=== PATIENT | female | born 1960 | race Caucasian/White ===

== ENCOUNTER 2022-07-25 10:16 | Outpatient (CLI) | payer OTHER, SELFPAY ==
--- NOTE | 2022-07-25 10:45 | CRLHL7_ITS ---
For Patients: As a result of the Century Cures Act, medical imaging exams and procedure reports are released immediately into your electronic medical record. You may view this report before your referring provider. If you have questions, please contact your health care provider. RIGHT SCREENING MAMMOGRAM WITH COMPUTER-AIDED DETECTION TECHNIQUE: CC and MLO views were obtained. These mammographic images have been obtained using full-field digital technique. These mammographic images were interpreted with the benefit of computer-aided detection. COMPARISON FILM: 05/27/21. FINDINGS: There are scattered areas of fibroglandular density IMPRESSION: There is no radiographic evidence for malignancy. ASSESSMENT: BI-RADS Category 1: Negative RECOMMENDATION: Routine screening mammogram in 1 year. A lay language report of this examination will be provided to the patient. Mikel Villegas M.D. Diagnostic Radiologist [email or web address] ABEL/Dictated by: Mikel Villegas MD @ 07/25/2022 11:20:00 AM (Electronically Signed)
== END 2022-07-25 10:17 | disposition home or self-care (01) ==
LOC: MAMMO 10:16
PROVIDERS: PCP Family Medicine; Visit Provider Nurse Practitioner Family
DX: Z12.31 Encounter for screening mammogram for malignant neoplasm of breast (principal)
CPT/HCPCS: 77067

== ENCOUNTER 2022-09-27 10:34 | Outpatient (CLI) | payer OTHER, SELFPAY | END 2022-09-27 10:35 | disposition home or self-care (01) | LOC: NFLDREF 10:36 | PROVIDERS: PCP Family Medicine; Visit Provider Family Medicine | DX: Z01.818 Encounter for other preprocedural examination (principal) | CPT/HCPCS: 80048 ==

== ENCOUNTER 2022-10-05 12:43 | Outpatient (CLI) | payer OTHER, SELFPAY ==
--- NOTE | 2022-10-05 13:00 | CRLHL7_ITS ---
For Patients: As a result of the Century Cures Act, medical imaging exams and procedure reports are released immediately into your electronic medical record. You may view this report before your referring provider. If you have questions, please contact your health care provider. DXA BONE MINERAL DENSITY STUDY Current height (in): 63.0. Weight (lb): 189.0. Menopause age: 48. Ethnicity: White. Reason for exam: Post-menopausal, aromatase inhibitor for breast CA. 1. Have you had a previous hip or vertebral fracture? No. 2. Have you had any fractures during your adult life which did not result from significant trauma (e.g., auto accident)? No. 3. Did either of your parents have a hip fracture? No. 4. Do you smoke? No. 5. Have you ever taken Glucocorticoids? No. 6. Do you have rheumatoid arthritis? No. 7. Do you have secondary osteoporosis? No. 8. Do you drink 3 or more alcoholic drinks per day? No. 9. Are you being treated for osteoporosis? No. 10. Have you ever taken any of the following medications: Actonel, Evista, Fosamax, Miacalcin, Reclast, Boniva, Forteo, HRT (i.e. estrogen/hormone therapy), Protelos, Prolia, Vitamin D, Calcium, other ??? please specify. ANSWER: Yes, calcium, vitamin D. 11. Do you have any of the following medical conditions: Anorexia or bulimia, asthma or emphysema, end stage renal disease, hyperparathyroidism, any seizure disorders, cancer, inflammatory bowel diseases, hysterectomy, other ??? please specify. ANSWER: Yes, cancer, hysterectomy. 12. What was your maximum height (inches)? 63. 13. Do you perform weight bearing exercise regularly? No. 14. Do you regularly consume dairy products? No. 15. Do you drink caffeinated beverages? Yes. 16. At what age did your period start? 13. 17. Are you premenopausal? No. 18. How many full term pregnancies have you had? 2. 19. Have you ever missed your period for more than 6 months in a row (not including or menopause)? No. TECHNIQUE: Bone mineral density study was performed using the [employer]. FINDINGS: The results of the study expressed as bone mineral density (BMD) are as follows: Lumbar spine L1 to L4: BMD: 0.923 g/cm2. T-score: -1.1. Z-score: 0.6. Neck Left: BMD: 0.817 g/cm2. T-score: -0.3. Z-score: 1.2. Right: BMD: 0.808 g/cm2. T-score: -0.4. Z-score: 1.1. Total Left: BMD: 0.821 g/cm2. T-score: -1.0. Z-score: 0.2. Right: BMD: 0.859 g/cm2. T-score: -0.7. Z-score: 0.5. IMPRESSION: Osteopenia. FRAX 10-year Fracture Risk Major Osteoporotic Fracture: 6.6 percent Hip Fracture: 0.3 percent Reported Risk Factors: [place] () Neck BMD = 0.808, BMI = 33.5 Mikel Villegas M.D. Diagnostic Radiologist [email or web address] Transcribed: 3:59 p.m. DW/Dictated by: Mkiel Villegas MD @ 10/05/2022 3:04:00 PM (Electronically Signed)
== END 2022-10-05 12:44 | disposition home or self-care (01) ==
LOC: RAD 12:45
PROVIDERS: PCP Family Medicine; Visit Provider Clinical Nurse Specialist
DX: Z78.0 Asymptomatic menopausal state (principal); M85.89 Other specified disorders of bone density and structure, multiple sites; C50.912 Malignant neoplasm of unspecified site of left female breast; Z79.811 Long term (current) use of aromatase inhibitors
CPT/HCPCS: 77080

== ENCOUNTER 2022-10-10 10:00 | Outpatient (CLI) | payer OTHER, SELFPAY | END 2022-10-10 10:01 | disposition home or self-care (01) | LOC: NFLDREF 16:19 | PROVIDERS: PCP Family Medicine; Referring Provider Family Medicine; Visit Provider Family Medicine | DX: E87.6 Hypokalemia (principal) | CPT/HCPCS: 84132 ==

== ENCOUNTER 2022-12-28 12:46 | Outpatient (RCR) | payer OTHER, SELFPAY ==
--- NOTE | 2022-08-11 11:13 | PC.NURSE ---
Pt called today to cancel her follow-up appointment in August. RN Noted that pt has no scheduled appointments at this time. Henny went on to say that she is not taking her AI because insurance company cancelled it. Pt states that she would like to be on the medication because she recently learned the benefits of taking it for several years. RN will communicate this confusion with TAYLOR Castorenasleeve turner and ask that she follow-up with Henny.
--- NOTE | 2022-08-22 14:08 | ONC.NURNOTE ---
Addendum entered by Kell Jarvis 09/05/22 15:49: Call to patient to see how she is tolerating the Anastrozole. Patient states she has still not been able to pick it up from her pharmacy because the pharmacy says it is not approved by her insurance. After calls to both the insurance company and the pharmacy, the issue has been resolved and the pharmacy is processing the order. Henny informed of same. 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 BCN will follow up in a few weeks to see how she is tolerating. Henny encouraged to call with questions or concerns. Original Note: Call to patient to let her know that we received notification of approval from her insurance for Anastrozole. I encouraged patient to pickling drum operator the medicine and start at her earliest convenience. I offered to schedule a one month follow up appointment but patient states she will call back at a later time to schedule. I told her that if I hadn't heard from her in a few weeks, I would reach out to see how she is tolerating the medication.
--- NOTE | 2022-09-20 08:55 | ONC.NURNOTE ---
Addendum entered by Kell Jarvis 09/25/22 13:54: Call to patient to see how she is tolerating Anastrozole. Patient states she is doing well. She reports intermittent night sweats and bone pain in her legs but does not feel that any intervention is needed at this time. I talked to patient about the need to get a baseline DEXA scan if she plans to continue taking the endocrine therapy. Also discussed the need for taking a Calcium and Vit D supplement while she is on endocrine therapy. Patient was connected to radiology to schedule DEXA and follow up with Dr. Taylor was also scheduled. Patient encouraged to call with questions or concerns. Original Note: Called pt to check in on how Anastrazole is going; LMOM.
== END 2023-01-20 23:59 | disposition home or self-care (01) ==
LOC: CCIC 12:46
PROVIDERS: PCP Family Medicine; Visit Provider Internal Medicine Hematology & Oncology
DX: C50.912 Malignant neoplasm of unspecified site of left female breast (principal); Z17.0 Estrogen receptor positive status [ER+]; Z79.811 Long term (current) use of aromatase inhibitors; M85.80 Other specified disorders of bone density and structure, unspecified site; R51.9 Headache, unspecified; R60.0 Localized edema
CPT/HCPCS: 99212; 99214

== ENCOUNTER 2023-01-04 21:43 | Emergency (ER) | payer OTHER, SELFPAY ==
[2023-01-04 21:48] VITALS: BP 147/96; PULSE 101; RESP 16; TEMP 37.4; O2SAT 99; BMI 33.7
--- NOTE | 2023-01-04 22:37 | ED.GENADULT ---
HPI - General Adult General Time Seen by Provider: 22:37 Date Seen: 01/04/23 Chief complaint: Insect Bite Stated complaint: stung by a bee Time Seen by Provider: 01/04/23 22:37 Source: patient and RN notes reviewed Mode of arrival: ambulatory Limitations: no limitations History of Present Illness HPI narrative: Patient was stung by a a be taking the garbage out tonight shortly after 8:00 p.m.. Initially her arm was swollen. It was her right arm. Is gone down quite a bit. She has not applied ice, did not take anything. She had radiation about a year ago and was told that she would be susceptible to skin infections from bug bites. She has no history of allergy to Hymenoptera. The swelling has completely resolved. She did wash her arm off right away when this happened. It is on the right forearm that this happened. She did not have any breathing issues, no oral pharyngeal swelling, no rash. Related Data Home Medications Medication Instructions Recorded Confirmed omeprazole 20 mg capsule,delayed 20 mg PO QDAY 03/14/22 01/04/23 release sennosides 8.6 mg tablet (senna) 8.6 mg PO QDAY PRN 09/27/22 01/04/23 ibuprofen 400 mg tablet 400 mg PO Q8H PRN 12/28/22 01/04/23 Previous Rx's Medication Instructions Recorded anastrozole 1 mg tablet (Arimidex) 1 mg PO QDAY #90 tabs 09/26/22 lisinopril 20 1 tab PO QDAY #90 tabs 09/27/22 mg-hydrochlorothiazide 25 mg tablet potassium chloride 20 mEq 20 meq PO BID #60 tabs 10/08/22 tablet,extended release Allergies Allergy/AdvReac Type Severity Reaction Status Date / Time [place] And Derivatives Allergy Mild Itchiness Verified 01/04/23 21:54 Review of Systems Narrative: As per HPI PFSH PFSH Medical History Urinary tract infection ?N39.0 - Urinary tract infection, site not specified (ICD-10) Infiltrating ductal carcinoma of left breast (2021) ?C50.912 - Malignant neoplasm of unspecified site of left female breast (ICD-10) Gastroesophageal reflux disease ?K21.9 - Gastro-esophageal reflux disease without esophagitis (ICD-10) Hypertension ?I10 - Essential (primary) hypertension (ICD-10) Surgical History History of mastectomy ?Z90.10 - Acquired absence of unspecified breast and nipple (ICD-10) Status post tubal ligation ?Z98.51 - Tubal ligation status (ICD-10) Status post carpal tunnel release ?Z98.890 - Other specified postprocedural states (ICD-10) History of hysterectomy ?Z90.710 - Acquired absence of both cervix and uterus (ICD-10) Family History Mother Myocardial infarction High blood pressure Father Myocardial infarction High blood pressure Brother Stroke High blood pressure Social History Smoking Status: Never smoker Do you use any of these nicotine containing products: None Second hand tobacco smoke exposure: No How often do you have a drink containing alcohol: monthly or less AUDIT-C Alcohol total score: 1 Non-prescribed substance use: denies use service: No Exam Const: Vital Signs, click to edit/add: Vital Signs - 24 hr 01/04/23 21:48 Temperature 99.3 F Pulse Rate [Pulse Oximeter] 101 H Respiratory Rate 16 Blood Pressure [Ri ght Upper Arm] 147/96 H Pulse Oximetry 99 Oxygen Delivery Me thod Room Air Documenting provider has reviewed patient's vital signs: yes Common normals: no apparent distress, average body habitus, oriented x3, no limitations, healthy appearing, alert and well nourished General appearance: cooperative, comfortable, well kempt and well developed HENMT: Common normals: normocephalic, head/scalp atraumatic, hearing grossly normal bilaterally and external nose normal Head and scalp: normocephalic and atraumatic Face and sinus: normal facial exam Nose: external nose normal Mouth: oral and palatal mucosa normal and lip normal Eye: Common normals: PERRL, EOMs intact bilaterally, conjunctivae normal and no scleral icterus Conjunctiva: conjunctiva(e) normal Pupil: PERRL Resp: Common normals: normal respiratory effort, no retractions, no use of accessory muscles and clear to auscultation bilaterally Effort & inspection: able to speak in complete sentences Auscultation: clear to auscultation bilaterally Cardio: Common normals: regular rate, regular rhythm, S1 normal heart sound, S2 normal heart sound, no gallops, no clicks and no murmurs Rate: regular rate Rhythm: regular rhythm Heart sounds: S1 normal and S2 normal Extremity: Other: Right forearm is visualized, has a pinpoint area on the medial distal forearm. No retained stinger. There is absolutely no surrounding erythema or raised area. Neuro: Common normals: oriented x3 Sensorium/orientation: alert Psych: Appearance: well kempt Course Course Hospital Course: Will give patient a dose of 10 mg oral Zyrtec to help prevent any reactivity. Discussed that there is no evidence of any infection from this bug bite in would be extremely uncommon to have an immediate cellulitis developed after a bug bite. That typically happens later. Did review with her difference between localized bug bite reaction and anaphylaxis. She may continue to see some swelling and localized irritation of the site, recommend daily Claritin or Zyrtec and p.r.n. topical and or oral Benadryl. We discussed using ice to her arm as much as she is able to next 24-48 hours until the reaction is gone. We did discussed hypersensitivity with subsequent bug bites, we have no way of knowing if that will ever happen but she should be aware. Vital Signs Vital signs: Initial Vital Signs Temperature 99.3 F 01/04/23 21:48 Temperature Source Temporal Artery Scan 01/04/23 21:48 Pulse Rate 101 H 01/04/23 21:48 Respiratory Rate 16 01/04/23 21:48 Blood Pressure 147/96 H 01/04/23 21:48 Blood Pressure Mean 113 H 01/04/23 21:48 Blood Pressure Position Sitting 01/04/23 21:48 Pulse Oximetry 99 01/04/23 21:48 Oxygen Delivery Method Room Air 01/04/23 21:48 Vital Signs Temperature 99.3 F 01/04/23 21:48 Pulse Rate 101 H 01/04/23 21:48 Respiratory Rate 16 01/04/23 21:48 Blood Pressure 147/96 H 01/04/23 21:48 Pulse Oximetry 99 01/04/23 21:48 Oxygen Delivery Method Room Air 01/04/23 21:48 Temperature 99.3 F 01/04/23 21:48 Pulse Rate 101 H 01/04/23 21:48 Respiratory Rate 16 01/04/23 21:48 Blood Pressure 147/96 H 01/04/23 21:48 Pulse Oximetry 99 01/04/23 21:48 Oxygen Delivery Method Room Air 01/04/23 21:48 Discharge Plan Discharge Clinical Impression: Bee sting Patient Disposition: Home, Self-Care Condition: Stable Instructions: Insect Bite or Sting (ED) Additional Instructions: Can continue with daily clear in her Zyrtec as long as there is localized tissue reaction. Topical Benadryl and or oral Benadryl as needed for symptom control. Do recommend ice to this area on your forearm the next 24-48 hours, this really can help diminish reaction. If you develop increasing swelling and redness of the site associated with fever and discomfort, please seek re-evaluation for possible development of cellulitis from the bug bite. Infection from a bug bite typically does not happen immediately and usually is seeing days after the incident. Activity Level: Activity as Tolerated Prescriptions: No Action omeprazole 20 mg capsule,delayed release(DR/EC) 20 mg PO QDAY ibuprofen 400 mg tablet 400 mg PO Q8H PRN lisinopril-hydrochlorothiazide 20-25 mg tablet 1 tab PO QDAY Qty: 90 1RF anastrozole [Arimidex] 1 mg tablet 1 mg PO QDAY Qty: 90 3RF Rx Instructions: Take 1 tablet daily. sennosides [senna] 8.6 mg tablet 8.6 mg PO QDAY PRN Patient Comments: TAKE 1 TABLET BY MOUTH DAILY potassium chloride 20 mEq tablet extended release 20 meq PO BID Qty: 60 2RF Rx Instructions: Okay to decrease to daily after 2-3 days. Follow Up/Referrals: Jerry Mcwilliams MD [Primary Care Provider] - Stand Alone Forms: [employer] Info Instructions
[2023-01-04] MEDS: CETIRIZINE HCL 10 MG TABLET PO (22:43)
== END 2023-01-04 23:00 | disposition home or self-care (01) ==
PROVIDERS: Emergency Provider Family Medicine; PCP Family Medicine
DX: T63.441A Toxic effect of venom of bees, accidental (unintentional), initial encounter (principal); M79.89 Other specified soft tissue disorders
CPT/HCPCS: 99283; A9270

== ENCOUNTER 2023-01-25 08:50 | Outpatient (CLI) | payer OTHER, SELFPAY ==
--- NOTE | 2023-01-25 09:00 | CRLHL7_ITS ---
For Patients: As a result of the Century Cures Act, medical imaging exams and procedure reports are released immediately into your electronic medical record. You may view this report before your referring provider. If you have questions, please contact your health care provider. Indication: Headaches, history of breast cancer. Technique: Noncontrast sagittal T1, axial FLAIR, T2 turbo spine echo, and diffusion weighted images. Supplemental post contrast T1 weighted axial and coronal sequences are provided after administration of 15 mL gadolinium-based IV contrast. Comparison: No prior studies available for comparison at this institution. Findings: No evidence of acute ischemia. Punctate focus of susceptibility artifact in the left temporo-occipital region consistent with prior microhemorrhage. Scattered as well as confluent foci of T2 hyperintensity in the supratentorial white white-matter. No focus of abnormal brain parenchymal or leptomeningeal contrast enhancement. The ventricles are normal in size. The larger intracranial arteries are patent. No suspicious calvarial lesion. Scattered paranasal sinus mucosal thickening and small right mastoid effusion. Impression: No acute intracranial abnormality. No evidence of intracranial metastasis. Scattered as well as confluent T2 periventricular and subcortical white matter hyperintensities, nonspecific but commonly seen as sequela of small-vessel ischemic disease or in the setting of chronic migraine headaches. Punctate focus of susceptibility in the left temporo-occipital region consistent with prior microhemorrhage. Dictated by Titus Pantoja MD @ 01/25/2023 4:46:45 PM (Electronically Signed)
--- NOTE | 2023-01-26 16:11 | ONC.NURNOTE ---
Called pt and reviewed Brain MRI results with her in relation to Dr. Ochoa's note. Results show No evidence of intracranial metastasis. Per Dr. Ochoa's note, if no sign of metastatic disease, recommend pt f/u with PCP for [facility] management. Reviewed with pt that service writer advisor unable to interpret any other results of MRI than No evidence of intracranial metastasis. and encouraged f/u with PCP for further discussion, as she has questions about her stroke risk/hx of stroke in her family.
== END 2023-01-25 08:51 | disposition home or self-care (01) ==
LOC: MRI 08:51
PROVIDERS: PCP Family Medicine; Visit Provider Physician Assistant
DX: R51.9 Headache, unspecified (principal); C50.912 Malignant neoplasm of unspecified site of left female breast
CPT/HCPCS: 70553; A9575

== ENCOUNTER 2023-07-17 15:24 | Outpatient (CLI) | payer OTHER, SELFPAY ==
--- OUTSIDE RECORDS SUMMARY | 2023-07-17 15:27 | XMS_ITS | Clinical Summary ---
Author Name Unknown Organization [facility] Address [address] [place] [address] Care Team Providers Care Editorial Director Name Role Phone Unavailable Primary Care Provider Unavailabl e Source Comments Patient records contain information from all sites at [facility]. For routine questions regarding patient records, call [phone] during business hours, M-F 8:00 AM - 5:00 PM Central Time. Record requests for emergency care only can be directed to [phone] at any time.[facility] Allergies Active Allergy Reactions Criticality Noted Date Comments [place] And Derivatives Hives (Reselect Reaction) 08/03/2021 Oxycodone Other (see comments) High 08/17/2021 Hypotension Medications Medication Sig Dispensed Refills Start Date End Date Status ibuprofen (ADVIL,MOTRIN) 200 mg tablet Every 6 Hours as needed 0 Active lisinopril-hydroCHLORO thiazide (PRINZIDE,ZESTORETIC) 20-25 mg per tablet Take 1 tablet by mouth daily. 0 08/30/2021 Active omeprazole magnesium 10 mg susp,delayed release for recon 1 tablet. 0 Active acetaminophen (TYLENOL) 325 mg tablet Take 325 mg by mouth every 4 (four) hours as needed for pain. 0 Active Active Problems Problem Noted Date Diagnosed Date Malignant Neoplasm Of Breast Upper Outer Quadrant Female Left 09/08/2021 Cancer Staging:Pathologic stage from 07/28/2021:Stage IA(pT2, pN1mi, cM0, G1, ER+, NM+, HER2-, Oncotype DX score: 19) - Signed by Asim Cerda M.D. on 09/09/2021 Social History Tobacco Use Types Packs/Day Years Used Date Smoking Tobacco: Never Smokeless Tobacco: Never Alcohol Use Standard Drinks/Week Comments Yes 0 (1 standard drink = 0.6 oz pur e alcohol) 5-10 beers per year Nutrition Answer Date Recorded Nutrition: EVOO Fat Source Unknown 09/01 Nutrition: Servings of Fruits/Vegetables per Day Not on file 09/01/2021 Dental Answer Date Recorded Dental: Regular Dentist Unknown 09/02/19 Sex and Gender Information Value Date Recorded Sex Assigned at Not on file Gender Identity Not on file Sexual Orientation Not on file Last Filed Vital Signs Vital Sign Reading Time Taken Comments Blood Pressure 122/57 09/09/2021 8:51 AM CDT Pulse 58 09/09/2021 8:51 AM CDT Temperature 36.2 ??C (97.1 ??F) 09/09/2021 8:51 AM CD T Respiratory Rate 24 02/16/2013 5:55 PM CDT Oxygen Saturation - - Inhaled Oxygen Concentration - - Weight 85 kg (187 lb 6.3 oz) 09/09/2021 8:51 AM CDT Height 162.5 cm (5' 3.98) 02/16/2013 2:33 PM CD T Body Mass Index 32.19 02/16/2013 2:33 PM CDT Plan of Treatment Health Maintenance Due Date Last Done Comments CT Colonography 1958 Cologuard 1960 Colonoscopy 1960 Colorectal Cancer Screening 1958 FIT 1958 HIV Screening 1960 Hepatitis C Screening 1960 Lipid (Cholesterol) Screening 1960 Creatinine Level (Kidney Function Test) 02/16/2014 02/16/2013 Sodium Level 02/16/2014 02/16/2013 Fasting Glucose for Diabetes Screening 02/17/2016 02/16/2013 Mammogram 06/27/2022 06/27/2021, 05/30/2021, 05/27/2021 COVID-19 Vaccine (3 - 2022-2 4 season) 2023 09/15/2020, 08/18/2020 Influenza Vaccine (#1) 2023 Potassium Level 05/16/2023 05/16/2022, 02/16/2013 Depression Screening (Annual PHQ-2) 06/18/2023 DTaP,Tdap,and Td Vaccines (2 - Td or Tdap) 06/24/2031 06/24/2021 Zoster Vaccines Completed 05/22/2022, 03/14/2022 Pneumococcal vaccine (0-64 years) Aged Out No longer eligible b ased on patient's age to complete this topic
--- OUTSIDE RECORDS SUMMARY | 2023-07-17 15:27 | XMS_ITS | Referral Summary ---
Author Name Unknown Organization [facility] Address [address] [place] [address] Care Team Providers Care Treating Plant Operator Name Role Phone Unavailable Primary Care Provider Unavailabl e Source Comments Patient records contain information from all sites at [facility]. For routine questions regarding patient records, call [phone] during business hours, M-F 8:00 AM - 5:00 PM Central Time. Record requests for emergency care only can be directed to [phone] at any time.[facility] Allergies Active Allergy Reactions Criticality Noted Date Comments [place] And Derivatives Hives (Reselect Reaction) 08/03/2021 Oxycodone [...] from 07/28/2021:Stage IA(pT2, pN1mi, cM0, G1, ER+, MO+, HER2-, Oncotype DX score: 19) - Signed [...] 02/16/2013 2:33 PM CDT Plan of Treatment Not on file
--- OUTSIDE RECORDS SUMMARY | 2023-07-17 15:27 | XMS_ITS ---
Author Name Unknown Organization [facility] Address [address] [place] [address] Care Team Providers Care Environmental Aide Name Role Phone Unavailable Unavailable Unavailable Surgery Details Not on file Complications Check Surgery Details section. Procedure Estimated Blood Loss Check Surgery Details section. Procedure Findings Check Surgery Details section. Procedure Specimens Taken Check Surgery Details section.
--- OUTSIDE RECORDS SUMMARY | 2023-07-17 15:27 | XMS_ITS | Clinical Summary ---
Author Name Unknown Organization [facility] Address [place], [place] [address] Care Team Providers Care Photocomposition Keyboard Operator Name Role Phone Pcp, No Primary Care Provider Unavailabl e Social History Tobacco Use Types Packs/Day Years Used Date Smoking Tobacco: Never Assessed Sex and Gender Information Value Date Recorded Sex Assigned at Not on file Gender Identity Not on file Sexual Orientation Not on file Obstetrics History Last Filed Vital Signs Vital Sign Reading Time Taken Comments Blood Pressure 116/76 10/24/2000 12:00 AM CDT Pulse 72 10/24/2000 12:00 AM CDT Temperature - - Respiratory Rate - - Oxygen Saturation - - Inhaled Oxygen Concentration - - Weight - - Height - - Body Mass Index - - Plan of Treatment Health Maintenance Due Date Last Done Comments Tdap 1969 Depression screening for age 12+ 1970 HIV for age 15-65 1973 BMI (ht and wt on same day) for age 18+ 1976 Hepatitis C screening for ag e 18-79 1976 Tetanus booster 1978 Pap test for age 21-65 1979 Colonoscopy through age 75 2003 Lipids for age 45-75 2003 Mammogram for age 45-75 2003 Zoster (shingles) series for age 50+ (1 of 2) 2008 COVID-19 vaccine series (2022-24 season) 2023 09/15/2020, 08/18/2020 Influenza for age 50-64 02/16/2023 Pneumococcal series for age 6-64 Aged Out No longer eligible b ased on patient's age to complete this topic Care Teams Photocomposition Keyboard Operator Relationship Specialty Start Date End Date Pcp, No . PCP - General 12/08/08
== END 2023-07-17 15:25 | disposition home or self-care (01) ==
PROVIDERS: PCP Family Medicine; Visit Provider Family Medicine
DX: I10 Essential (primary) hypertension (principal); Z13.220 Encounter for screening for lipoid disorders
CPT/HCPCS: 80053; 80061

== ENCOUNTER 2025-06-03 13:35 | Emergency (ER) | payer OTHER, SELFPAY ==
--- OUTSIDE RECORDS SUMMARY | 2025-06-03 13:40 | XMS_ITS | CCD ---
Author Name [facility] Address [address] [address] Organization [facility] Address [address] [address] Care Team Providers Care Strategic Manager Name Role Phone Catrachito Martinez MD Unavailable Unavailable Allergies and Adverse Reactions Medication/Group Name Reaction Severity Date [place] fruit (substance) Rash, Itching of skin, Hives 04/03/2022 Reason for Visit OV 30 MIN Medications Date Name Route Dose Frequency Instructions Start Date End Date Status Fill Status Indication 07/05/2021 Ibuprofen Oral Q6HRS as npcmlkcmmnhe00/18/2022meprazole Oral Delayed Release Tabletdailyactive 10/10/2021Lisinopril-Hydrochlorothiazide Oral 20 mg-25 [id number]/18/2022 Lisinopril Oralstopped Problems Diagnosis Status Date of Diagnosis Resolution Date BMI 30+ - obesity Active Encounter for other plastic and reconstructive surgery following medical procedure or healed injuryActiveBreast cancer, femaleActive Social History Date Name Value 04/03/2022 Sex Female
--- OUTSIDE RECORDS SUMMARY | 2025-06-03 13:40 | XMS_ITS | Clinical Summary ---
Author Organization [employer] [facility] Address [address] [place] [id number] Care Team Providers Care Station Helper Name Role Phone Pcp, No Primary Care Provider Unavailabl e Social History Tobacco UseTypesPacks/DayYears UsedDateSmoking Tobacco: Never Assessed CommentsUnknownSex and Gender InformationValueDate RecordedSex Assigned at Not on fileLegal UqfJnqdvo23/14/2013 6:39 AM CSTGender IdentityNot on fileSexual OrientationNot on file Last Filed Vital Signs Vital SignReadingTime TakenCommentsBlood Vtitlyze695/7605 12:00 AM CDT Xujse9851/09/2001 12:00 AM CDTTemperature--Respiratory Rate--Oxygen Saturation-- Inhaled Oxygen Concentration--Weight--Height--Body Mass Index-- Plan of Treatment Health MaintenanceDue DateLast DoneCommentsTetanus gnxohpb1007/27/1969Depression screening for age 12+1970BMI (ht and wt on same day) for age 18+1976 Hepatitis C screening for age 18-7907/27/1976Colonoscopy through age 75 2003Lipids for age 45-75007/27/2003Mammogram for age 45-75007/27/2003 Pneumococcal series for age 50+ (1 of 1 - PCV)2008Zoster (shingles) series for age 50+ (1 of 2)2008DEXA/DXA scan for age 65+4COVID-19 vaccine series (2024- season)5009/15/2020, 08/18/2020Influenza Vaccine (#1)2025RSV vaccine for adults or (1 - 1-dose 75+ series)2033Hepatitis B series for 19+Aged OutNo longer eligible based on patient's age to complete this topic Insurance Care Teams Team MemberRelationshipSpecialtyStart DateEnd Date Pcp, No PCP - General12/08/08
[2025-06-03 13:46] VITALS: BP 201/117; PULSE 76; RESP 18; TEMP 36.8; O2SAT 96; BMI 35.6
--- NOTE | 2025-06-03 14:08 | ED.GENADULT ---
HPI - General Adult General Chief complaint: Hypertension Stated complaint: high blood pressure Time Seen by Provider: 06/03/25 13:41 History of Present Illness HPI narrative: Patient is a pleasant 64 year white female has had a mild cold for the last couple of weeks it has been better the last couple of days. She was seen at the clinic today and noted to have blood pressure elevation and was sent to the ER. She is asymptomatic other than a resolving upper respiratory infection with nasal congestion and cough which is now gone. She has no chest pain, fever, chills. She was on lisinopril and hydrochlorothiazide, but she has been out of these for insurance reasons and has not restarted and did not plan to until June. Given her blood pressure level today she was sent to the ER. Again she is asymptomatic. Related Data Home Medications ?Medication ?Instructions ?Recorded ?Confirmed sennosides 8.6 mg tablet (senna) 8.6 mg PO QDAY PRN 09/27/22 06/03/25 ibuprofen 400 mg tablet 400 mg PO Q8H PRN 12/28/22 06/03/25 Previous Rx's ?Medication ?Instructions ?Recorded anastrozole 1 mg tablet (Arimidex) 1 mg PO QDAY #90 tabs 09/26/22 omeprazole 20 mg capsule,delayed 20 mg PO QDAY #90 caps 07/17/23 release potassium chloride 20 mEq 20 meq PO BID #180 tabs 07/17/23 tablet,extended release metoprolol succinate 25 mg 25 mg PO DAILY #30 tabs 06/03/25 tablet,extended release 24 hr (Toprol XL) Allergies Allergy/AdvReac Type Severity Reaction Status Date / Time [place] And Derivatives Allergy Mild Itchiness Verified 06/03/25 13:12 Review of Systems Status of ROS: Reports: 10 or more systems reviewed and unremarkable except as noted in History and below [facility] Medical History Urinary tract infection ?N39.0 - Urinary tract infection, site not specified (ICD-10) Infiltrating ductal carcinoma of left breast (2021) ?C50.912 - Malignant neoplasm of unspecified site of left female breast (ICD-10) Gastroesophageal reflux disease ?K21.9 - Gastro-esophageal reflux disease without esophagitis (ICD-10) Hypertension ?I10 - Essential (primary) hypertension (ICD-10) Surgical History History of mastectomy ?Z90.10 - Acquired absence of unspecified breast and nipple (ICD-10) Status post tubal ligation ?Z98.51 - Tubal ligation status (ICD-10) Status post carpal tunnel release ?Z98.890 - Other specified postprocedural states (ICD-10) History of hysterectomy ?Z90.710 - Acquired absence of both cervix and uterus (ICD-10) Family History Mother Myocardial infarction High blood pressure Father Myocardial infarction High blood pressure Brother Stroke High blood pressure Social History Smoking Status: Never smoker Do you use any of these nicotine containing products: None Second hand tobacco smoke exposure: No How often do you have a drink containing alcohol: monthly or less AUDIT-C Alcohol total score: 1 Non-prescribed substance use: denies use service: No Exam Narrative: Exam Narrative: Objective vital signs show blood pressure 201/117 rest of vital signs unremarkable Heart rhythm regular without murmur No facial asymmetry Lungs clear. Neurologic nonfocal, patient is ambulatory. Const: Vital Signs, click to edit/add: Vital Signs - 24 hr 06/03/25 13:46 Temperature 98.2 F Pulse Rate [Pulse Oximeter] 76 Respiratory Rate 18 Blood Pressure [Ri ght Upper Arm] 201/117 H Pulse Oximetry 96 Oxygen Delivery Me thod Room Air Course Vital Signs Vital signs: Initial Vital Signs Temperature 98.2 F 06/03/25 13:46 Temperature Source Temporal Artery Scan 06/03/25 13:46 Pulse Rate 76 06/03/25 13:46 Respiratory Rate 18 06/03/25 13:46 Blood Pressure 201/117 H 06/03/25 13:46 Blood Pressure Mean 145 H 06/03/25 13:46 Blood Pressure Position Sitting 06/03/25 13:46 Pulse Oximetry 96 06/03/25 13:46 Oxygen Delivery Method Room Air 06/03/25 13:46 Vital Signs Temperature 98.2 F 06/03/25 13:46 Pulse Rate 76 06/03/25 13:46 Respiratory Rate 18 06/03/25 13:46 Blood Pressure 201/117 H 06/03/25 13:46 Pulse Oximetry 96 06/03/25 13:46 Oxygen Delivery Method Room Air 06/03/25 13:46 Temperature 98.2 F 06/03/25 13:46 Pulse Rate 76 06/03/25 13:46 Respiratory Rate 18 06/03/25 13:46 Blood Pressure 201/117 H 06/03/25 13:46 Pulse Oximetry 96 06/03/25 13:46 Oxygen Delivery Method Room Air 06/03/25 13:46 Medications Administered Medications: Generic Name Dose Route Start Last Admin Trade Name Freq PRN Reason Stop Dose Admin Metoprolol Succinate 25 mg 06/04/25 09:00 06/03/25 14:22 Metoprolol Succinate (Xl) 25 Mg Tab PO 25 mg DAILY DAVONTE Administration Medical Decision Making MDM Narrative Medical decision making narrative: [age] year white female with known hypertension off medications for a period of weeks, with elevated blood pressure. At this point she needs to be restarted on blood pressure pill, will give her Toprol XL 25 mg daily. She has a home blood pressure monitor and she can check this a couple times a day, for lower level number remains at 1:15 a.m. or above she should come back to her primary care doctor and get readjustment of medication. She may need additional medicine added to the Toprol or increased dose. Should be rechecked in the clinic in about a week to 10 days. Medicine be faxed into her pharmacy and she will be given a tablet here in the ER. She was comfortable this plan. Addendum 2:30 p.m.: The patient has also concerned that her ears were bothering her and I checked them, there is no otitis media but she has some little bit of fluid behind her ears bilaterally and some retracted eardrums, no redness. Recommend observation and time. Discharge Plan Discharge Clinical Impression: Hypertension Patient Disposition: Home, Self-Care Condition: Stable Additional Instructions: Continue check her blood pressure at home with her blood pressure cuff, all fax in some medication for you to take 1 pill daily, if your bottom number on the blood pressures over 115 you should return to your doctor. Activity Level: No Restrictions Discharge Diet: Low Fat/Low Cholesterol Prescriptions: New metoprolol succinate [Toprol XL] 25 mg tablet extended release 24 hr 25 mg PO DAILY Qty: 30 0RF No Action ibuprofen 400 mg tablet 400 mg PO Q8H PRN omeprazole 20 mg capsule,delayed release(DR/EC) 20 mg PO QDAY Qty: 90 3RF potassium chloride 20 mEq tablet extended release 20 meq PO BID Qty: 180 3RF anastrozole [Arimidex] 1 mg tablet 1 mg PO QDAY Qty: 90 3RF Rx Instructions: Take 1 tablet daily. sennosides [senna] 8.6 mg tablet 8.6 mg PO QDAY PRN Patient Comments: TAKE 1 TABLET BY MOUTH DAILY Follow Up/Referrals: Jerry Mcwilliams MD [Primary Care Provider, Family Practice] Stand Alone Forms: [employer] Info Instructions
[2025-06-03] MEDS: METOPROLOL SUCCINATE (XL) 25 MG TAB PO (14:22)
--- OUTSIDE RECORDS SUMMARY | 2025-06-03 14:25 | XMS_ITS | CCD ---
Author Name Interface, [id number] lity Address [address] [facility] [address] [address] Organization [facility] Address [address] [facility] [address] [address] Care Team Providers Care Research Affiliate Name Role Phone Catrachito Martinez MD Unavailable Unavailable Allergies and Adverse Reactions Medication/Group Name Reaction Severity Date [place] fruit (substance) Rash, Itching of skin, Hives 04/03/2022 Reason for Visit OV 30 MIN Medications Date Name Route Dose Frequency Instructions Start Date End Date Status Fill Status Indication 07/05/2021 Ibuprofen Oral Q6HRS as swjlaprnnnwd89/18/2022meprazole Oral Delayed Release Tabletdailyactive 10/10/2021Lisinopril-Hydrochlorothiazide Oral 20 mg-25 ysxglxomfwvyr14/18/2022 Lisinopril Oralstopped Problems Diagnosis Status Date of Diagnosis Resolution Date BMI 30+ - obesity Active Encounter for other plastic and reconstructive surgery following medical procedure or healed injuryActiveBreast cancer, femaleActive Social History Date Name Value 04/03/2022 Sex Female
--- OUTSIDE RECORDS SUMMARY | 2025-06-03 14:25 | XMS_ITS | CCD ---
Author Name Interface, [id number] lity Address [address] [facility] [address] [address] Organization [facility] Address [address] [facility] [address] [address] Care Team Providers Care Family Practice Physician Name Role Phone Catrachito Martinez MD Unavailable Unavailable Allergies and Adverse Reactions Medication/Group Name Reaction Severity Date [place] fruit (substance) Rash, Itching of skin, Hives 04/03/2022 Reason for Visit OV 30 MIN Medications Date Name Route Dose Frequency Instructions Start Date End Date Status Fill Status Indication 07/05/2021 Ibuprofen Oral Q6HRS as yfdrimlikjcj73/18/2022meprazole Oral Delayed Release Tabletdailyactive 10/10/2021Lisinopril-Hydrochlorothiazide Oral 20 mg-25 ueyjzblpbqyvf53/18/2022 Lisinopril Oralstopped Problems Diagnosis Status Date of Diagnosis Resolution Date BMI 30+ - obesity Active Encounter for other plastic and reconstructive surgery following medical procedure or healed injuryActiveBreast cancer, femaleActive Social History Date Name Value 04/03/2022 Sex Female
[2025-06-03 14:40] VITALS: BP 194/115
== END 2025-06-03 14:41 | disposition home or self-care (01) ==
LOC: ED 14:20
PROVIDERS: Emergency Provider Family Medicine; PCP Family Medicine
DX: I10 Essential (primary) hypertension (principal); T50.996A Underdosing of other drugs, medicaments and biological substances, initial encounter; Z91.138 Patient's unintentional underdosing of medication regimen for other reason; Z59.71 Insufficient health insurance coverage
CPT/HCPCS: 99283; 99284; A9270